=== PATIENT | female | born 1955 | race Caucasian/White ===

== ENCOUNTER → 2021-01-21 09:11 | Outpatient (CLI) | payer OTHER, SELFPAY ==
[2021-01-21] MEDS: COVID-19 VACC #1, MRNA(MOD) 100 MCG/0.5 ML VIAL IM (09:22)
== END ==
PROVIDERS: Visit Provider Internal Medicine
DX: Z23 Encounter for immunization (principal)
CPT/HCPCS: 0011A; 91301

== ENCOUNTER → 2021-02-18 08:38 | Outpatient (CLI) | payer OTHER, SELFPAY ==
[2021-02-18] MEDS: COVID-19 VACC #2, MRNA(MOD) 100 MCG/0.5 ML VIAL IM (08:50)
== END ==
PROVIDERS: Visit Provider Internal Medicine
DX: Z23 Encounter for immunization (principal)
CPT/HCPCS: 0012A; 91301